=== PATIENT | female | born 1940 | race Caucasian/White ===

== ENCOUNTER 2017-08-08 09:32 | Outpatient (CLI) | payer MEDICARE | END 2017-08-08 09:33 | disposition home or self-care (01) | LOC: BICMAMMO 09:32 | PROVIDERS: ATTEND Family Medicine | DX: Z12.31 Encounter for screening mammogram for malignant neoplasm of breast (principal) | CPT/HCPCS: 77067; G0202 ==

== ENCOUNTER 2018-03-13 09:51 | Outpatient (CLI) | payer MEDICARE ==
[2018-03-13 11:26] LABS: #Eosinphils 0.1 thou/uL (0.0-0.7); #Lymphocytes 1.5 thou/uL (1.20-3.40); #Monocytes 0.5 thou/uL (0.11-0.59); #Neutrophils 1.8 thou/uL (1.40-6.50); %Eosinophils 2.2 % (0.0-10.0); %Lymphocytes 38.1 % (21.0-51.0); %Monocytes 13.3 % (0.0-10.0); %Neutrophils 45.4 % (42.0-75.0); Hemoglobin 12.2 g/dL (12.0-16.0); Mean Corpuscular HGB CONC 34.3 g/dL (32.0-36.0); Mean Corpuscular Hemoglobin 32.4 pg (27.0-31.0); Mean Corpuscular Volume 94.6 fL (78.0-98.0); Mean Platelet Volume 6.1 fL (7.4-10.4); Platelet Count 239 thou/uL (130-400); RBC Distribution Width 12.6 % (11.5-14.5); Red Blood Cell (RBC) Count 3.76 mill/uL (4.20-5.40); White Blood Cell (WBC) Count 3.9 thou/uL (4.8-10.8)
[2018-03-13 12:03] LABS: Anion Gap 12 mmol/L (10-20); BUN (Urea Nitrogen) 16 mg/dL (9.8-20.1); Calc. Creatinine Clearance 0 mL/min (70-130); Calcium 8.7 mg/dL (7.8-10.44); Carbon Dioxide 24 mmol/L (23-31); Chloride 106 mmol/L (98-107); Estimated GFR-MDRD 55; Glucose 89 mg/dL (83-110); Potassium 4.3 mmol/L (3.5-5.1); Sodium 138 mmol/L (136-145)
--- NOTE | 2018-03-13 12:37 | RAD ---
CHEST 2 VIEWS: Date: 03/13/18 HISTORY: Preop. COMPARISON: 04/08/17. FINDINGS: Cardiac silhouette and pulmonary vasculature are unremarkable. Mediastinum is midline. No confluent a ir space consolidation, pneumothorax, or pleural fluid. Enchondroma right humerus partially visualize d. IMPRESSION: No active cardiopulmonary abnormalities are demonstrated. POS: [facility]
== END 2018-03-13 09:52 | disposition home or self-care (01) ==
LOC: LABBT 09:51
PROVIDERS: ATTEND Orthopaedic Surgery Hand Surgery
DX: Z01.818 Encounter for other preprocedural examination (principal); M65.341 Trigger finger, right ring finger; M19.131 Post-traumatic osteoarthritis, right wrist
CPT/HCPCS: 71046; 80048; 85025; 85652

== ENCOUNTER 2018-03-14 05:51 | Inpatient (IN) | payer MEDICARE ==
[2018-03-13 10:24] VITALS: BMI 35.0
[2018-03-14] MEDS ORDERED: Midazolam HCl 2 mg/2 ml Vial ONE (06:13)
[2018-03-14] MEDS ORDERED: Fentanyl 250 MCG/5 ML VIAL ONE (06:13)
[2018-03-14] MEDS ORDERED: Bupivacaine PF 0.5% 30 ML VIAL ONE (06:47)
[2018-03-14] MEDS ORDERED: Betamet Acet/Betamet Na Ph 30 MG/5 ML VIAL ONE (06:47)
[2018-03-14] MEDS ORDERED: Sodium Chloride 0.9% 10 ML ONE (06:47)
[2018-03-14] MEDS ORDERED: Bacitracin Zinc Ointment 30 gm TUBE ONE (06:48)
[2018-03-14] MEDS ORDERED: CEFAZOLIN/Water 2 GM/20 ML SYRINGE ONE (07:21)
[2018-03-14] MEDS ORDERED: Fentanyl 100 MCG/2 ML VIAL SLOW IVP PRN (11:32)
[2018-03-14] MEDS ORDERED: Acetaminophen 325 MG TAB PO PRN (11:32)
[2018-03-14] MEDS ORDERED: Ondansetron HCl/PF 4 MG/2 ML Vial IV PRN (11:32)
[2018-03-14] MEDS ORDERED: traMADol HCl 50 MG TAB PO PRN (11:32)
[2018-03-14] MEDS ORDERED: Communication Order-Pharmacy FS PRN (11:45)
[2018-03-14] MEDS ORDERED: TETANUS AND DIPHTHERIA TOX/PF 0.5 ML DISP.SYRIN IM SCH (12:00)
[2018-03-14] MEDS ORDERED: Ondansetron HCl/PF 4 MG/2 ML Vial IVP PRN (12:08)
[2018-03-14] MEDS ORDERED: Promethazine HCl 25 MG/ML VIAL SLOW IVP PRN (12:08)
[2018-03-14] MEDS ORDERED: Meperidine HCl/PF 25 MG/ML VIAL SLOW IVP PRN (12:08)
[2018-03-14] MEDS ORDERED: Promethazine HCl 25 MG/ML VIAL IM PRN (12:08)
[2018-03-14] MEDS ORDERED: Succinylcholine Chloride 20 MG/ML 10 ml SYRINGE FS ONE (12:35)
[2018-03-14] MEDS ORDERED: Ketorolac Tromethamine 30 MG/ML VIAL ONE (12:35)
[2018-03-14] MEDS ORDERED: PROPOFOL 200 MG/20 ML VIAL ONE (12:35)
[2018-03-14] MEDS ORDERED: ePHEDrine/0.9% NaCl/PF SYRINGE 50 mg/10 ml ONE (12:35)
[2018-03-14] MEDS ORDERED: Lidocaine 1% PF 5 ML VIAL ONE (12:35)
[2018-03-14] MEDS ORDERED: Dexamethasone 20 MG/5 ML VIAL ONE (12:35)
[2018-03-14] MEDS ORDERED: Ondansetron HCl/PF 4 MG/2 ML Vial ONE (12:35)
--- NOTE | 2018-03-14 12:45 | RAD ---
RIGHT WRIST INTRAOPERATIVE FLUOROSCOPY THREE VIEWS: History: Severe arthritis. FINDINGS: Intraoperative fluoroscopy was provided for internal fixation and orthopedic surgery as performed by Dr. Patel. Multiple spot fluoroscopic images show four metallic screws transfixing the proximal an d distal carpal rows and surgical absence of the scaphoid. Fluoro time = 152 seconds. POS: [facility]
[2018-03-14] MEDS: HYDROcodone/Acetaminophen 5/325 mg Tablet PO PRN ×3 (15:11→23:20)
[2018-03-14] MEDS ORDERED: Famotidine 20 MG TAB PO PRN (19:54)
[2018-03-14] MEDS ORDERED: Furosemide 20 MG TAB PO PRN (19:56)
[2018-03-14] MEDS ORDERED: Amitriptyline HCl 25 MG TAB PO SCH (21:00)
[2018-03-14] MEDS ORDERED: Aspirin 81 mg Enteric Coated Tablet PO SCH (21:00)
[2018-03-15] MEDS: HYDROcodone/Acetaminophen 5/325 mg Tablet PO PRN ×2 (04:49→09:52)
[2018-03-15 05:23] LABS: ALT (SGPT) 17 U/L (8-55); AST (SGOT) 18 U/L (5-34); Albumin 3.7 g/dL (3.4-4.8); Alkaline Phosphatase 63 U/L (40-150); Anion Gap 12 mmol/L (10-20); BUN (Urea Nitrogen) 18 mg/dL (9.8-20.1); Bilirubin, Total 0.3 mg/dL (0.2-1.2); Calc. Creatinine Clearance 67 mL/min (70-130); Calcium 8.6 mg/dL (7.8-10.44); Carbon Dioxide 24 mmol/L (23-31); Chloride 102 mmol/L (98-107); Estimated GFR-MDRD 48; Globulin 2.5 g/dL (2.4-3.5); Glucose 126 mg/dL (83-110); Potassium 4.3 mmol/L (3.5-5.1); Protein, Total 6.2 g/dL (6.0-8.3); Sodium 134 mmol/L (136-145)
--- NOTE | 2018-03-15 08:23 | OP ---
PREOPERATIVE DIAGNOSES: 1. Right ring finger A1 loli tenosynovitis with triggering. 2. Right scapholunate advanced collapse wrist, stage 3. FINDINGS: 1. A very tight A1 loli, right ring finger. 2. Complete scapholunate ligament tear with no residual ligament left, mild dorsal triquetral instab ility with complete obliteration of radioscaphoid chondral surface, scaphoid to capitate over 70% inv olved, chondral surface of the capitate and lunate approximately 50% involved with osteophytic change s. PROCEDURES: 1. Right ring finger trigger digit release. 2. Scaphoid excision. 3. Capito-hamate, lunotriquetral fusion for the four-corner fusion, in situ with only minimal modifi cation of position and using a bone graft from cadaver as well as bone graft from the scaphoid. TOTAL TOURNIQUET TIME: 120 minutes. SURGEON: Miguel Patel M.D. C-ARM USED: Yes. DESCRIPTION OF PROCEDURE: After successful general LMA technique, the limb was prepped and draped. Patient then had the timeout done appropriately. The ring finger trigger digit area and then the zig zag incision for the dorsal approach to the wrist were injected with 5 mL on the palm, loli incisio n and 15 incisions over the dorsal wrist incision. At this point, we then had the limb exsanguinated , tourniquet inflated to 250 mmHg pressure. A zigzag incision was made 15 mm long, extended over the A1 loli, carried through the skin and subcutaneous tissue. We then dissected the digital nerve br anch free from the center of the field. This also identified the A1 loli was with thick bands prox imal to this. The bands were released first in the A1 loli completely. Once this was done, the A2 loli was intact and there was no bowstringing. We placed 2 mL of Celestone in this area, then jane sed the wound with interrupted 4-0 nylon in mattress pattern. We turned our attention now to the dorsal wrist incision. Tourniquet was already inflated. Skin inc ision was carried through the skin and subcutaneous tissue until we identified superficial ulnar and superficial radial nerve branches, retracted them well away from the center of the field, so we can t hen visualize the extensor retinaculum. We saw the extensor pollicis longus, opened the retinaculum at the level of the fourth dorsal compartment, carried this incision through the capsule, making 1 la rge flap of the 3 capsule ligamentous structures, which would be all in the base. We now saw the com plete scaphoid and placed a K-wire in it. Used a C-arm to identify that the K-wire was adequate. We then slowly elevated the scaphoid at its bed, took it to the back table and saw we can only get a sm all amount of bone graft from it. So, we would need bone bank's cadaver. At the same time, we spare d as much of the lunotriquetral ligament as possible. Then, began our cortical decortication, which was done completely with a combination of the hooked curette and then a power faisal to finish the rest down the subchondral bone with bleeding seen, even despite the tourniquet was available. This was p unctate bleeding. We now placed the bone graft in the side in previously 40 degrees apex, dorsal, angulated. The patie nt then had bone graft placed, with a mixture of the four-quadrant bone graft in the center of the actual area, we suspect to heal, so we will put the needed bone graft here. Now, we placed 2 jose de jesus dewires, one on the ulnar central aspect of the hamate into the ulnar central aspect of the triquetru m, and another one on the central aspect of the capitellum, this time pointing towards the lunate. On ce this was done, we measured, drilled, and held the knees in place with accessory clamps, we allowed to compress at the capito-lunate joint. We then followed with successive placement of screws, one m ore from this approach dorsally and from the hamate to the capitate and they appeared to be solid and well positioned from the sagittal plane. We then turned attention to the lateral wound, and without making another incision, we dissected down, protecting the superficial ulnar nerve until the point w here we could visibly see the patient's extensor carpi ulnaris. Radiographs used to identify the ирина nts, open the sheath of the extensor carpi ulnaris distal to the styloid over the lunate, triquetrum, and hamate joint regions. K-wires were placed in appropriate position from the sagittal plane, then this was without adequate placement of the wires. We then finished some decortication, finished pac tonja the bone, and then placed 2 screws first in the capito-hamate joint with a compression scr ew and the same in the eviowxar-rmobfy-iqcrfy-triquetrum fusion. We then finished the guidewires on the lateral side, they were in a good position from the sagittal p javi, and then we measured them and placed them after drilling over the guidewire from the triquetrum to the lunate and then from the hamate to the capitate. Excellent apposition was seen. Slightly a more amount of bone graft was placed. There were no loose bodies. We tested wrist motion x5 with us e of umbrella and there were no other findings. At this point, the patient had the tourniquet deflated. We closed with a 2-0 Vicryl, the extensor ca rpi ulnaris sheath. A #1 Ethibond with OS 4 needle was used to close in interrupted fashion horizont al mattress. The capsule was not completely closed with the suture. Then, with the tourniquet defla elen, we could see some bleeding from the subcutaneous tissue and maintained hemostasis with electroca utery protecting the cutaneous nerve branch of radial and ulnar. We then closed the retinaculum with interrupted 2-0 Vicryl, in a horizontal mattress technique, and then we were able to close the subcu taneous tissue with a running stitch and then the skin reapproximated with simple nylon. The patient then had a bulky dressing applied, left the operating room without evidence of anesthetic or operati ve complication. This included both the injuries.
[2018-03-15] MEDS ORDERED: Clopidogrel Bisulfate 75 MG TAB PO SCH (09:00)
[2018-03-15] MEDS ORDERED: Lisinopril 10 MG TAB PO SCH (09:00)
[2018-03-15] MEDS ORDERED: Multivitamin W/ Minerals 1 TAB PO SCH (09:00)
[2018-03-15] MEDS ORDERED: Polyethylene Glycol 3350 17 GM Packet PO SCH (09:00)
[2018-03-15] MEDS ORDERED: Ubidecarenone 50 MG CAP PO SCH (09:00)
[2018-03-15] MEDS ORDERED: Loratadine 10 MG TAB PO SCH (09:00)
[2018-03-15 10:43] VITALS: BP 118/66; TEMP 98.3
== END 2018-03-15 10:55 | disposition home or self-care (01) | DRG 514 ==
LOC: SDC 05:51 → SURG A 11:22
PROVIDERS: ADMIT Orthopaedic Surgery Hand Surgery; ATTEND Orthopaedic Surgery Hand Surgery
PROC: 0RG Upper Joints, Fusion (ICD-10-PCS; principal; 2018-03-14)
PROC: 0LN70ZZ Release Right Hand Tendon, Open Approach (ICD-10-PCS; 2018-03-14)
PROC: 0PBM0ZZ Excision of Right Carpal, Open Approach (ICD-10-PCS; 2018-03-14)
PROC: 0RG Upper Joints, Fusion (ICD-10-PCS; 2018-03-14)
PROC: 0RG Upper Joints, Fusion (ICD-10-PCS; 2018-03-14)
DX: M19.031 Primary osteoarthritis, right wrist (principal); M65.341 Trigger finger, right ring finger; M65.9 Synovitis and tenosynovitis, unspecified; I10 Essential (primary) hypertension; E78.00 Pure hypercholesterolemia, unspecified; I25.10 Atherosclerotic heart disease of native coronary artery without angina pectoris; Z88.2 Allergy status to sulfonamides; Z88.8 Allergy status to other drugs, medicaments and biological substances; Z79.02 Long term (current) use of antithrombotics/antiplatelets; Z79.82 Long term (current) use of aspirin; Z79.899 Other long term (current) drug therapy
CPT/HCPCS: 36415; 71046; 76001; 80048; 80053; 85025; 85652; A4216; C1713; J0702; J1100; J1885; J2001; J2250; J2270; J2405; J2704; J3010; J3490; S0020

== ENCOUNTER 2018-04-04 09:10 | Outpatient (CLI) | payer MEDICARE | END 2018-04-04 09:11 | disposition home or self-care (01) | LOC: BICCT 09:10 | PROVIDERS: ATTEND Internal Medicine Critical Care Medicine | DX: J84.10 Pulmonary fibrosis, unspecified (principal); R91.1 Solitary pulmonary nodule | CPT/HCPCS: 71250 ==

== ENCOUNTER 2018-08-10 12:58 | Outpatient (CLI) | payer MEDICARE ==
--- NOTE | 2018-08-10 16:01 | BD ---
Exam: DEXA Bone Density 08/10/18 COMPARISON: None available. HISTORY: Postmenopausal female undergoing screening for osteoporosis. Lumbar Spine: BMD (g/cm2) L1 0.844 T-Score: -1.3 L2 0.799 T-Score: -2.2 L3 0.866 T-Score: -2.0 L4 0.931 T-Score: -1.2 L1-L4 0.863 T-Score: -1.7 Femoral Neck: 0.562 T-Score: -2.6 Total Proximal Femur: 0.652 T-Score: -2.4 The FRAX-WHO fracture risk assessment tool is not reported as some T-Scores are at or below -2.5. IMPRESSION: 1. Osteopenia of the lumbar spine. 2. Osteoporosis of the femoral neck correlating with a high associated risk for fracture. POS: [facility]
== END 2018-08-10 12:59 | disposition home or self-care (01) ==
LOC: BICMAMMO 12:58
PROVIDERS: ATTEND Nurse Practitioner Family
DX: Z12.31 Encounter for screening mammogram for malignant neoplasm of breast (principal); M81.0 Age-related osteoporosis without current pathological fracture; M85.88 Other specified disorders of bone density and structure, other site
CPT/HCPCS: 77063; 77067; 77080

== ENCOUNTER 2019-04-11 09:27 | Outpatient (CLI) | payer MEDICARE ==
--- NOTE | 2019-04-11 10:49 | CT ---
Exam: CHEST CT WITHOUT CONTRAST: HISTORY: Pulmonary fibrosis. Cough. COMPARISON: 04/04/2018, 04/08/2017. FINDINGS: Limited evaluation of the mediastinum due to lack of IV contrast. No mediastinal mass, lymphadenopath y or hematoma. Normal heart size. Atherosclerosis of the aortic valve and visualized aorta. No aneurysm. There are coronary calcifications. Visualized upper solid organs are grossly unremarkable. Hypodensity in the hepatic parenchyma is once again demonstrated. Gallbladder is surgically absent. Trachea and central bronchi are patent. Dependent atelectatic changes. Scarring in the lingula and mi ddle lobe. The previously noted groundglass nodule in the superior segment of the right lower lobe is less evide nt on the current examination, due to adjacent lung parenchymal changes. Currently, nodule measures approximately 4 mm. These lung parenchymal changes are along the dependent aspect of the lung parench yma and may represent atelectasis. Early fibrotic change cannot be excluded. There is no evidence of cavitation, bullous formation, or bronchiectasis. There are no suspicious nodules throughout the l lizzeth parenchyma. IMPRESSION:: Patchy linear opacities in lung parenchyma, similar to the previous examination. Stable groundglass n odule noted in the superior segment of the right lower lobe. Adjacent lung parenchymal changes may represent early fibrotic change. However, dependent atelectasis cannot be excluded. Consider high-res olution chest CT for further detail.. Transcribed Date/Time: 04/11/2019 11:37 AM
== END 2019-04-11 09:28 | disposition home or self-care (01) ==
LOC: BICCT 09:27
PROVIDERS: ATTEND Internal Medicine Critical Care Medicine
DX: J84.10 Pulmonary fibrosis, unspecified (principal); R91.1 Solitary pulmonary nodule
CPT/HCPCS: 71250

== ENCOUNTER 2019-08-01 10:01 | Outpatient (CLI) | payer MEDICARE ==
--- NOTE | 2019-08-01 10:24 | ULT ---
EXAM: Left lower extremity venous Doppler HISTORY: Left lower extremity swelling and pain. FINDINGS: Grayscale, color-flow, Doppler evaluation, spectral analysis of the left lower extremity venous struc tures is performed with 2-D imaging. The left common femoral, superficial femoral, popliteal, posterior tibial, proximal greater saphenous and profunda femoral veins are imaged. There is normal luminal compressibility, flow, and augmentation in the visualized deep venous structu res of the left lower extremity. IMPRESSION: No evidence of a deep vein thrombosis in the visualized deep venous structures left lower extremity.
== END 2019-08-01 10:02 | disposition home or self-care (01) ==
LOC: SCSULT 10:01
PROVIDERS: ATTEND Orthopaedic Surgery
DX: M25.572 Pain in left ankle and joints of left foot (principal); R60.0 Localized edema

== ENCOUNTER 2019-08-21 12:24 | Outpatient (CLI) | payer MEDICARE ==
--- NOTE | 2019-08-21 15:25 | MMO ---
Bilateral MAMMO Bilat Screen [facility]. CLINICAL HISTORY: Patient is 79 years old and is seen for screening. The patient has no family history of breast cancer. The patient has no personal history of cancer. The patient has a history of left Excisional Biopsy in 1990 - benign. VIEWS: The views performed were: bilateral craniocaudal with tomosynthesis; bilateral mediolateral oblique with tomosynthesis; and right mediolateral oblique. FILMS COMPARED: The present examination has been compared to prior imaging studies performed at [facility] on 07/22/2015, 08/05/2016, 08/08/2017 and 08/10/2018. This study has been interpreted with the assistance of computer-aided detection. MAMMOGRAM FINDINGS: There are scattered fibroglandular densities. There are benign appearing calcifications seen in both breasts. There are no suspicious masses, suspicious calcifications, or new areas of architectural distortion. IMPRESSION: THERE IS NO MAMMOGRAPHIC EVIDENCE OF MALIGNANCY. A ROUTINE FOLLOW-UP MAMMOGRAM IN 1 YEAR IS RECOMMENDED. THE RESULTS OF THIS EXAM WERE SENT TO THE PATIENT. ACR BI-RADS Category 2 - Benign finding MAMMOGRAPHY NOTE: 1. A negative mammogram report should not delay a biopsy if a dominant of clinically suspicious mass is present. 2. Approximately 10% to 15% of breast cancers are not detected by mammography. 3. Adenosis and dense breasts may obscure an underlying neoplasm. Reported by: VANESA CASTELAN MD Electonically Signed: [id number]
== END 2019-08-21 12:25 | disposition home or self-care (01) ==
LOC: BICMAMMO 12:24
PROVIDERS: ATTEND Family Medicine
DX: Z12.31 Encounter for screening mammogram for malignant neoplasm of breast (principal)
CPT/HCPCS: 77063; 77067

== ENCOUNTER 2020-04-09 09:51 | Outpatient (CLI) | payer MEDICARE ==
--- NOTE | 2020-04-09 12:21 | CT ---
CT CHEST WITHOUT CONTRAST: INDICATION: Pulmonary fibrosis. Shortness of breath. COMPARISON: Comparison is made to chest CT of 04/11/2019. FINDINGS: Lungs are well expanded. No significant interstitial prominence seen in the upper lobes. Lower lobes show mild interstitial prominence posteriorly in both lower lobes which has a similar cherry earance to the prior exam. No infiltrate or effusion. No significant interval change. Mediastinum unremarkable. Images through upper abdomen the hepatic cystic structure noted previously to aartiad gold clips in the jessy hepatis is stable. IMPRESSION: Stable lung [place]. Some mild interstitial prominent posteriorly in the lower lobes again noted. Th ere is a subtle nodular density posterior right lower lobe measuring up to 5 mm which does not appear significantly changed. POS: [facility]
== END 2020-04-09 09:52 | disposition home or self-care (01) ==
LOC: BICCT 09:51
PROVIDERS: ATTEND Internal Medicine Critical Care Medicine
DX: J84.10 Pulmonary fibrosis, unspecified (principal)
CPT/HCPCS: 71250

== ENCOUNTER 2020-08-22 11:32 | Outpatient (CLI) | payer MEDICARE ==
--- NOTE | 2020-08-22 12:42 | MMO ---
Bilateral MAMMO Bilat Screen [facility]. CLINICAL HISTORY: Patient is 80 years old and is seen for screening. The patient has no family history of breast cancer. The patient has no personal history of cancer. The patient has a history of left Excisional Biopsy in 1990 - benign. VIEWS: The views performed were: bilateral craniocaudal with tomosynthesis and bilateral mediolateral oblique with tomosynthesis. FILMS COMPARED: The present examination has been compared to prior imaging studies performed at [facility] on 08/05/2016, 08/08/2017, 08/10/2018 and 08/21/2019. This study has been interpreted with the assistance of computer-aided detection. MAMMOGRAM FINDINGS: There are scattered fibroglandular densities. There are stable benign appearing calcifications seen in both breasts. There are also vascular calcifications. There are no suspicious masses, suspicious calcifications, or new areas of architectural distortion. IMPRESSION: THERE IS NO MAMMOGRAPHIC EVIDENCE OF MALIGNANCY. A ROUTINE FOLLOW-UP MAMMOGRAM IN 1 YEAR IS RECOMMENDED. THE RESULTS OF THIS EXAM WERE SENT TO THE PATIENT. ACR BI-RADS Category 2 - Benign finding MAMMOGRAPHY NOTE: 1. A negative mammogram report should not delay a biopsy if a dominant of clinically suspicious mass is present. 2. Approximately 10% to 15% of breast cancers are not detected by mammography. 3. Adenosis and dense breasts may obscure an underlying neoplasm. Reported by: JAYSHREE ALFORD MD Electonically Signed: [id number]
== END 2020-08-22 11:33 | disposition home or self-care (01) ==
LOC: BICMAMMO 11:32
PROVIDERS: ATTEND Family Medicine
DX: Z12.31 Encounter for screening mammogram for malignant neoplasm of breast (principal); Z91.89 Other specified personal risk factors, not elsewhere classified
CPT/HCPCS: 77063; 77067

== ENCOUNTER 2020-09-12 12:31 | Inpatient (IN) | payer MEDICARE ==
[2020-09-12] MEDS ORDERED: Dexamethasone 4 mg/ml Vial ONE (13:01)
[2020-09-12 13:14] LABS: #Lymphocytes 0.7 thou/uL (1.20-3.40); #Monocytes 0.9 thou/uL (0.11-0.59); #Neutrophils 4.7 thou/uL (1.40-6.50); %Basophils 0.5 % (0.0-1.0); %Eosinophils 0.2 % (0.0-10.0); %Monocytes 13.5 % (0.0-10.0); %Neutrophils 74.8 % (42.0-75.0); Hemoglobin 11.8 g/dL (12.0-16.0); Mean Corpuscular HGB CONC 34.4 g/dL (32.0-36.0); Mean Corpuscular Hemoglobin 31.7 pg (27.0-31.0); Mean Corpuscular Volume 92.1 fL (78.0-98.0); Mean Platelet Volume 6.2 fL (7.4-10.4); Platelet Count 336 thou/uL (130-400); RBC Distribution Width 11.9 % (11.5-14.5); Red Blood Cell (RBC) Count 3.72 mill/uL (4.20-5.40); White Blood Cell (WBC) Count 6.3 thou/uL (4.8-10.8)
[2020-09-12 13:31] LABS: ALT (SGPT) 34 U/L (8-55); AST (SGOT) 34 U/L (5-34); Albumin 3.5 g/dL (3.4-4.8); Alkaline Phosphatase 61 U/L (40-110); Anion Gap 18 mmol/L (10-20); BUN (Urea Nitrogen) 22 mg/dL (9.8-20.1); Bilirubin, Total 0.6 mg/dL (0.2-1.2); Calc. Creatinine Clearance 0 mL/min (70-130); Calcium 8.3 mg/dL (7.8-10.44); Carbon Dioxide 19 mmol/L (23-31); Chloride 92 mmol/L (98-107); Glucose 101 mg/dL (83-110); Potassium 3.8 mmol/L (3.5-5.1); Protein, Total 6.5 g/dL (6.0-8.3); Sodium 125 mmol/L (136-145)
--- NOTE | 2020-09-12 13:45 | RAD ---
PORTABLE CHEST 1 VIEW: DATE: 09/12/2020. TIME: 12:59 PM. HISTORY: Cough. COVID positive. FINDINGS: Comparison is made with the exam of 03/03/2015. The heart size is normal. The lungs are expanded without focal areas of consolidation, pneumothorace s, or pleural effusions. Enchondroma in the right proximal humerus is again seen. IMPRESSION: No radiographic evidence of acute cardiopulmonary process. Plain radiographs can be falsely negative in the setting of COVID-19 pneumonia. POS: [facility]
[2020-09-12] MEDS ORDERED: Ondansetron ODT 4 MG TAB PO PRN (16:37)
[2020-09-12] MEDS ORDERED: Guaifenesin DM 100-10/5 ML UDCUP PO PRN (16:37)
[2020-09-12] MEDS ORDERED: Ondansetron PF 4 MG/2 ML Vial IVP PRN (16:37)
--- NOTE | 2020-09-12 17:18 | PDOC.HHP ---
Hospitalist HPI - History of Present Illness General malaise and weakness History of Present Illness: PCP: Anjum Buchanan HPI: The patient is a 80-year-old female with past medical history significant for hypertension, hyperlipidemia, CAD x1 stent (2007) that presents to the emergency department with above complaint. The patient reports feeling generally weak for the past 7 to 10 days. She reports that the onset is gradual and she describes it as feeling "blah". She reports that she was diagnosed with Covid on 08/30/2020. At that time, her symptoms were mild nonproductive cough and mild shortness of breath. Since, she has just progressively felt "more blah". She denies any fever or chills. She denies any recent fall or trauma. The only change in her medications that she was started on hydroxychloroquine approximately 1 week ago by her PCP. She denies any abdominal pain, nausea, vomiting. She had 1 bout of diarrhea approximately 7 days ago. She denies any abdominal pain, hemoptysis, hematochezia/melena. No wheezing. No history of DVT/PE. No history of COPD/asthma. Denies any chest pain, heart palpitations or lightheadedness. Denies dysuria and hematuria. ED Course: Presented hypertensive with a BP 155/56, NL HR, tachypneic 22 RR, 90% SPO2, afebrile. EKG normal sinus rhythm no ST elevations. Troponin negative. CXR no acute process. Sodium 125, BUN 22. WBC 6.3, hemoglobin 11.8, hematocrit 34.3, platelet 336. Magnesium 2.0. Medications: 1 L normal saline Dexamethasone IVP Hospitalist ROS - Review of Systems All other systems reviewed; all pertinent +/- noted in HPI/Subj - Medication Medications: 1. Hydroxychloroquine 200 mg p.o. twice daily x10 days. 2. Lisinopril 20 mg p.o. every morning. 3. Aspirin 81 mg p.o. nightly. 4. Isosorbide mononitrate 90 mg p.o. every morning. 5. Plavix 75 mg p.o. daily. 6. Toprol-XL 50 mg p.o. daily. 7. Ranexa 1000 mg p.o. twice daily. 8. Evista 60 mg p.o. daily 9. MiraLAX 1 packet p.o. daily 10. Amitriptyline unknown dose as needed 11. Hyoscyamine unknown dose as needed. Allergies: Statins, Zetia, adhesive tape Hospitalist History - Past Medical History Source: patient, RN notes reviewed Cardiac: reports: CAD (X1 stent (2007)), HTN, Hyperlipidemia - Past Surgical History Past Surgical History: reports: Hysterectomy, Other (Right carpal tunnel (1990), left hip and wrist surgery, hip replacement (2011), right heart cath 03/19) - Family History Other Family History: Noncontributory to this case - Social History Smoking Status: Never smoker Alcohol: reports: None Drugs: reports: none Living Situation: With Family Occupation: Retired Activity level: independent ambulation - Exam General Appearance: NAD, awake alert. negative: ill appearing Eye: anicteric sclera ENT: normocephalic atraumatic Neck: supple, no lymphadenopathy Heart: RRR, no murmur, no gallops, no rubs, normal peripheral pulses Respiratory: CTAB, no wheezes, no rales, no ronchi, normal chest expansion, no tachypnea Gastrointestinal: soft, non-tender, normal bowel sounds, no guarding, no rigidity Extremities: no cyanosis, no edema Skin: no rashes Neurological: cranial nerve grossly intact Musculoskeletal: generalized weakness Psychiatric: normal affect, A&O x 3 Hospitalist Results - Labs Result Diagrams: 09/12/20 12:56 09/12/20 12:56 Lab results: WBC 6.3 thou/uL (4.8-10.8) 09/12/20 12:56 Hgb 11.8 g/dL (12.0-16.0) L 09/12/20 12:56 Hct 34.3 % (36.0-47.0) L 09/12/20 12:56 MCV 92.1 fL (78.0-98.0) 09/12/20 12:56 Plt Count 336 thou/uL (130-400) 09/12/20 12:56 Neutrophils % 74.8 % (42.0-75.0) 09/12/20 12:56 Sodium 125 mmol/L (136-145) L 09/12/20 12:56 Potassium 3.8 mmol/L (3.5-5.1) 09/12/20 12:56 Chloride 92 mmol/L (98-107) L 09/12/20 12:56 Carbon Dioxide 19 mmol/L (23-31) L 09/12/20 12:56 BUN 22 mg/dL (9.8-20.1) H 09/12/20 12:56 Creatinine 0.85 mg/dL (0.6-1.1) 09/12/20 12:56 Glucose 101 mg/dL (83-110) 09/12/20 12:56 Calcium 8.3 mg/dL (7.8-10.44) 09/12/20 12:56 Total Bilirubin 0.6 mg/dL (0.2-1.2) 09/12/20 12:56 AST 34 U/L (5-34) 09/12/20 12:56 ALT 34 U/L (8-55) 09/12/20 12:56 Alkaline Phosphatase 61 U/L (40-110) 09/12/20 12:56 Troponin I Less than 0.010 ng/mL (< 0.028) 09/12/20 12:56 Serum Total Protein 6.5 g/dL (6.0-8.3) 09/12/20 12:56 Albumin 3.5 g/dL (3.4-4.8) 09/12/20 12:56 - EKG Interpretation EKG: Normal sinus rhythm no ST elevations - Radiology Interpretation Chest x-ray Status: report reviewed by me Additional Comment: No acute cardiopulmonary process Hospitalist H&P A/P - Problem (1) Hyponatremia Code(s): E87.1 - HYPO-OSMOLALITY AND HYPONATREMIA Status: Acute (2) Generalized weakness Code(s): R53.1 - WEAKNESS Status: Acute (3) COVID-19 virus infection Code(s): U07.1 - COVID-19 Status: Acute (4) CAD (coronary artery disease) Code(s): I25.10 - ATHSCL HEART DISEASE OF [place] CORONARY ARTERY W/O ANG PCTRS Status: Chronic (5) Dyslipidemia Code(s): E78.5 - HYPERLIPIDEMIA, UNSPECIFIED Status: Chronic (6) Hypertension Code(s): I10 - ESSENTIAL (PRIMARY) HYPERTENSION Status: Chronic - Plan Plan: 80/F with PMH HTN, HLD, CAD presents for general weakness and malaise. Admit to medical floor, observation status. Expected length of stay less than 2 midnights. #Hyponatremia Presented sodium Na 125. Diarrhea x1 episode. No vomiting. Not on diuretics. Check serum osmolality, urine sodium and osmolality. Check TSH and UA. Received 1 L normal saline in ED. Recheck BMP at 1999. #Generalized weakness Likely multifactorial. Possibly related to problem #1 and #3. #COVID-19 virus infection Diagnosed 08/30. Repeat Covid test pending Presented NL RR and SPO2. Continue to monitor. No indication for steroids. Lovenox for DVT prophylaxis. Isolation precautions. Cough medicine as needed. #CAD Chronic. Restart home dose aspirin and Plavix. Restart home dose Toprol-XL, isosorbide mononitrate and Ranexa. #Dyslipidemia Chronic. She does not take any home medications for this. #Hypertension Presented mildly hypertensive. Restart home BP, ACEI, isosorbide mononitrate. Continue monitor BP Lovenox for DVT prophylaxis. Pepcid for GI prophylaxis. CODE STATUS is full code. Discussed the case with attending physician, Dr. Cross.
[2020-09-12 18:47] LABS: Bacteria/HPF None Seen HPF (None Seen); Bilirubin Negative (Negative); Blood, Urine Negative (Negative); Clarity Clear (Clear); Glucose, Urine (Dipstick) Normal (Negative); Ketone, Urine Trace mg/dL (Negative); Leukocyte Negative Leu/uL (Negative); Nitrite 1+ (Negative); Protein, Urine (Dipstick) Negative (Neg-Trace); RBC/HPF 0-3 HPF (0-3); Specific Gravity, Urine 1.004 (1.002-1.036); Squamous Epithelial None Seen HPF (0-3); Urobilinogen Normal mg/dL (Less than 2); WBC/HPF 0-3 HPF (0-3)
[2020-09-12] MEDS: Famotidine 20 MG TAB PO SCH (19:56)
[2020-09-12 20:41] LABS: Anion Gap 16 mmol/L (10-20); BUN (Urea Nitrogen) 19 mg/dL (9.8-20.1); Calc. Creatinine Clearance 81 mL/min (70-130); Calcium 8.3 mg/dL (7.8-10.44); Carbon Dioxide 18 mmol/L (23-31); Chloride 100 mmol/L (98-107); Glucose 167 mg/dL (83-110); Potassium 4.1 mmol/L (3.5-5.1); Sodium 130 mmol/L (136-145)
[2020-09-12] MEDS ORDERED: Famotidine/PF 20 mg/2ml Vial SLOW IVP SCH (21:00)
[2020-09-13 06:51] LABS: #Lymphocytes 0.8 thou/uL (1.20-3.40); #Monocytes 0.5 thou/uL (0.11-0.59); #Neutrophils 2.6 thou/uL (1.40-6.50); %Basophils 0.2 % (0.0-1.0); %Eosinophils 0.1 % (0.0-10.0); %Lymphocytes 21.2 % (21.0-51.0); %Neutrophils 66.5 % (42.0-75.0); Hemoglobin 12.7 g/dL (12.0-16.0); Mean Corpuscular HGB CONC 33.9 g/dL (32.0-36.0); Mean Corpuscular Hemoglobin 31.7 pg (27.0-31.0); Mean Corpuscular Volume 93.5 fL (78.0-98.0); Mean Platelet Volume 6.2 fL (7.4-10.4); Platelet Count 334 thou/uL (130-400); RBC Distribution Width 11.9 % (11.5-14.5); Red Blood Cell (RBC) Count 4.01 mill/uL (4.20-5.40); White Blood Cell (WBC) Count 3.9 thou/uL (4.8-10.8)
[2020-09-13 07:11] LABS: Anion Gap 16 mmol/L (10-20); BUN (Urea Nitrogen) 18 mg/dL (9.8-20.1); Calc. Creatinine Clearance 89 mL/min (70-130); Calcium 8.3 mg/dL (7.8-10.44); Carbon Dioxide 17 mmol/L (23-31); Chloride 103 mmol/L (98-107); Glucose 127 mg/dL (83-110); Potassium 3.9 mmol/L (3.5-5.1); Sodium 132 mmol/L (136-145)
[2020-09-13] MEDS: Famotidine 20 MG TAB PO SCH (07:53)
[2020-09-13] MEDS: Enoxaparin Sodium 40 MG/0.4 ML SYRINGE SC SCH (07:53)
[2020-09-13] MEDS ORDERED: FLU VACC QS2020-21(65YR UP)/PF 240 MCG/0.7 ML SYRINGE IM ONE (09:00)
[2020-09-13] MEDS ORDERED: HYDROcodone/Acetaminophen 7.5/325 mg Tablet PO PRN (09:06)
[2020-09-13] MEDS ORDERED: HYOSCYAMINE SULFATE 0.125 MG PO PRN (09:06)
[2020-09-13] MEDS ORDERED: Furosemide 20 MG TAB PO PRN (09:06)
[2020-09-13] MEDS ORDERED: Famotidine 20 MG TAB PO PRN (09:06)
[2020-09-13] MEDS ORDERED: hydrALAZINE 20 MG/ML VIAL SLOW IVP PRN (09:13)
[2020-09-13] MEDS ORDERED: Hyoscyamine Sulfate SL 0.125 mg Tablet PO PRN (09:30)
--- NOTE | 2020-09-13 11:14 | PDOC.HOSPP ---
- Subjective Encounter Date: 09/13/20 Encounter Time: 09:15 Subjective: Patient feels nauseated today she feels she did not receive any medications - Objective Vital Signs & Weight: Vital Signs (12 hours) Temp Pulse Resp BP BP Pulse Ox 09/13/20 08:52 97.9 F 74 18 153/70 H 98 09/13/20 08:50 97.9 F 74 18 153/70 H 153/70 H 98 09/13/20 04:00 98.0 F 70 18 145/80 H 98 09/13/20 00:00 98.0 F 63 18 152/79 H 98 Weight Weight 207 lb 3.752 oz Result Diagrams: 09/13/20 06:30 09/13/20 06:30 Hospitalist ROS - Medication Medications: Active Medications Generic Name Dose Route Start Last Admin Trade Name Freq PRN Reason Stop Dose Admin Enoxaparin Sodium 40 mg 09/13/20 09:00 09/13/20 07:53 Enoxaparin Sodium 40 Mg/0.4 Ml Syringe SC 40 mg 0900 ABDI Administration - Exam General Appearance: NAD, awake alert ENT: normocephalic atraumatic Neck: supple Respiratory: normal chest expansion Neurological: no focal deficits Psychiatric: normal affect, normal behavior, A&O x 3 Hosp A/P - Plan 80/F with PMH HTN, HLD, CAD presents for general weakness and malaise. Admit to medical floor, observation status. Expected length of stay less than 2 midnights. #Hyponatremia--- improving Subclinical hyperthyroidism -Patient is not on any thyroid supplement will follow up with the free T4 will not start her on any supplement but follow-up in 1 or 2 weeks with the TSH level as this may be subacute presentation of her Covid. Recheck BMP at 1999. #Generalized weakness Likely multifactorial. #COVID-19 virus infection Diagnosed 08/30. -Need to treat as she is symptomatic -Empiric Decadron and vitamins. #CAD Chronic. Restart home dose aspirin and Plavix. Restart home dose Toprol-XL, isosorbide mononitrate and Ranexa. #Dyslipidemia Chronic. She does not take any home medications for this. #Hypertension Presented mildly hypertensive. Restart home BP, ACEI, isosorbide mononitrate. Continue monitor BP Physical therapy consult Lovenox for DVT prophylaxis. Pepcid for GI prophylaxis.
[2020-09-13] MEDS ORDERED: Multivitamin W/ Minerals 1 TAB PO SCH (11:30)
[2020-09-13] MEDS ORDERED: Dexamethasone 4 MG TAB PO SCH (11:30)
[2020-09-13] MEDS ORDERED: Clopidogrel Bisulfate 75 MG TAB PO SCH (11:30)
[2020-09-13] MEDS ORDERED: Ubidecarenone 50 MG CAP PO SCH (11:30)
[2020-09-13] MEDS ORDERED: Zinc Sulfate 220 MG CAP PO SCH (11:30)
[2020-09-13] MEDS ORDERED: Lisinopril 10 MG TAB PO SCH (11:30)
[2020-09-13] MEDS ORDERED: Loratadine 10 MG TAB PO SCH (11:30)
[2020-09-13] MEDS ORDERED: Polyethylene Glycol 3350 17 GM Packet PO SCH (11:30)
[2020-09-13] MEDS ORDERED: Cholecalciferol 1,000 UNITS (25 MCG) TAB PO SCH (11:30)
[2020-09-13] MEDS: Acetaminophen 325 MG TAB PO PRN ×2 (13:59→21:46)
[2020-09-13 16:58] LABS: SARS-CoV-2 MS2 Positive; SARS-CoV-2 N Gene Positive; SARS-CoV-2 S Gene Positive; SARS-CoV-2 by NAA DETECTED (NotDetected); SARS-CoV-2 orf1ab Positive
[2020-09-13] MEDS: Aspirin Chewable 81 MG TAB PO SCH (20:17)
[2020-09-13] MEDS: Amitriptyline HCl 25 MG TAB PO SCH (20:18)
[2020-09-13] MEDS ORDERED: Non-Formulary Item 1 EACH (Omeprazole [Omeprazole] 40 MG Capsule.Dr) PO SCH (21:00)
[2020-09-13] MEDS ORDERED: Non-Formulary Item 1 EACH (Ranolazine [Ranexa] 1,000 MG Tab.Er.12h) PO SCH (21:00)
[2020-09-13] MEDS ORDERED: Amitriptyline HCl 25 MG TAB PO SCH (21:00)
[2020-09-14 05:13] VITALS: BMI 33.5
[2020-09-14 06:19] LABS: #Basophils 0.1 thou/uL (0.0-0.2); #Lymphocytes 0.9 thou/uL (1.20-3.40); #Monocytes 0.7 thou/uL (0.11-0.59); #Neutrophils 6.5 thou/uL (1.40-6.50); %Basophils 0.7 % (0.0-1.0); %Eosinophils 0.1 % (0.0-10.0); %Lymphocytes 10.5 % (21.0-51.0); %Monocytes 8.4 % (0.0-10.0); %Neutrophils 80.4 % (42.0-75.0); Hemoglobin 12.1 g/dL (12.0-16.0); Mean Corpuscular HGB CONC 33.8 g/dL (32.0-36.0); Mean Corpuscular Hemoglobin 31.5 pg (27.0-31.0); Mean Platelet Volume 6.2 fL (7.4-10.4); Platelet Count 364 thou/uL (130-400); Red Blood Cell (RBC) Count 3.86 mill/uL (4.20-5.40); White Blood Cell (WBC) Count 8.1 thou/uL (4.8-10.8)
[2020-09-14] MEDS: Ubidecarenone 50 MG CAP PO SCH (07:49)
[2020-09-14] MEDS: Dexamethasone 4 MG TAB PO SCH (07:49)
[2020-09-14] MEDS: Loratadine 10 MG TAB PO SCH (07:50)
[2020-09-14] MEDS: Cholecalciferol 1,000 UNITS (25 MCG) TAB PO SCH (07:50)
[2020-09-14] MEDS: Clopidogrel Bisulfate 75 MG TAB PO SCH (07:50)
[2020-09-14] MEDS: Zinc Sulfate 220 MG CAP PO SCH (07:50)
[2020-09-14] MEDS: Polyethylene Glycol 3350 17 GM Packet PO SCH (07:51)
[2020-09-14] MEDS: Enoxaparin Sodium 40 MG/0.4 ML SYRINGE SC SCH (07:51)
[2020-09-14] MEDS: Multivitamin W/ Minerals 1 TAB PO SCH (07:51)
[2020-09-14] MEDS: Lisinopril 10 MG TAB PO SCH (07:51)
[2020-09-14] MEDS ORDERED: Non-Formulary Item 1 EACH (Cetirizine Hcl [Zyrtec] 10 MG Capsule) PO SCH (09:00)
[2020-09-14] MEDS ORDERED: Lisinopril 10 MG TAB PO SCH (09:00)
[2020-09-14] MEDS ORDERED: UBIDECARENONE 100 MG PO SCH (09:00)
[2020-09-14] MEDS ORDERED: [UNRECOGNIZED DRUG - OTHER] PO SCH (09:00)
[2020-09-14] MEDS ORDERED: hydrALAZINE 20 MG/ML VIAL SLOW IVP PRN (10:05)
[2020-09-14] MEDS ORDERED: Lorazepam 1 MG TAB PO PRN (11:49)
--- NOTE | 2020-09-14 11:49 | PDOC.HOSPP ---
- Subjective Encounter Date: 09/14/20 Encounter Time: 09:10 Subjective: Patient feels much better today. She participated in physical therapy yesterday. She is ambulating in the room without any oxygen requirement. Her sats 96% in the room air. Her blood pressure is quite elevated. With her medications at home systolic runs around 160 range. We started her on all her home medications. She takes Toprol-XL in the evening by choice. She takes lisinopril in the morning. Will provide hydralazine as needed to keep the systolic below 160. Patient feels that she is quite edgy and anxious and wondering whether she can get some medications for that - Objective Vital Signs & Weight: Vital Signs (12 hours) Temp Pulse Resp BP BP BP Pulse Ox 09/14/20 11:34 98.0 F 57 L 16 152/74 H 98 09/14/20 10:20 157/74 H 09/14/20 08:57 97.8 F 58 L 16 175/74 H 09/14/20 08:55 97.8 F 58 L 16 175/74 H 97 09/14/20 07:51 175/74 H 09/14/20 07:50 97.8 F 58 L 16 175/74 H 97 09/14/20 04:00 97.7 F 51 L 18 160/80 H 97 09/14/20 00:00 97.8 F 61 18 152/88 H 99 Weight Admit Weight 207 lb 3.76 oz Weight 208 lb I&O: 09/13/20 09/14/20 09/15/20 06:59 06:59 06:59 Intake Total 1000 Balance 1000 Result Diagrams: 09/14/20 06:06 09/13/20 06:30 Hospitalist ROS - Medication Medications: Active Medications Generic Name Dose Route Start Last Admin Trade Name Freq PRN Reason Stop Dose Admin Acetaminophen 650 mg 09/12/20 16:37 09/13/20 21:46 Acetaminophen 325 Mg Tab PO 650 mg Q4H PRN Administration Headache/Fever/Mild Pain (1-3) Amitriptyline HCl 25 mg 09/13/20 21:00 09/13/20 20:18 Amitriptyline Hcl 25 Mg Tab PO 25 mg HS ABDI Administration Aspirin 81 mg 09/13/20 21:00 09/13/20 20:17 Aspirin Chewable 81 Mg Tab PO 81 mg HS ABDI Administration Cholecalciferol 2,000 units 09/14/20 09:00 09/14/20 07:50 Cholecalciferol 1,000 Units (25 Mcg) Tab PO 2,000 units DAILY ABDI Administration Clopidogrel Bisulfate 75 mg 09/14/20 09:00 09/14/20 07:50 Clopidogrel Bisulfate 75 Mg Tab PO 75 mg DAILY ABDI Administration Coenzyme Q10 100 mg 09/14/20 09:00 09/14/20 07:49 Ubidecarenone 50 Mg Cap PO 100 mg DAILY ABDI Administration Dexamethasone 6 mg 09/14/20 08:00 09/14/20 07:49 Dexamethasone 4 Mg Tab PO 6 mg QAM-WM ABDI Administration Enoxaparin Sodium 40 mg 09/13/20 09:00 09/14/20 07:51 Enoxaparin Sodium 40 Mg/0.4 Ml Syringe SC 40 mg 0900 ABDI Administration Iron/Minerals/Multivitamins 1 tab 09/14/20 09:00 09/14/20 07:51 Multivitamin W/ Minerals 1 Tab PO 1 tab DAILY ABDI Administration Isosorbide Mononitrate 60 mg 09/14/20 09:00 09/14/20 07:51 Isosorbide Mononitrate Er 60 Mg Tab PO 60 mg DAILY ABDI Administration Lisinopril 10 mg 09/14/20 09:00 09/14/20 07:51 Lisinopril 10 Mg Tab PO 10 mg DAILY ABDI Administration Loratadine 10 mg 09/14/20 09:00 09/14/20 07:50 Loratadine 10 Mg Tab PO 10 mg DAILY ABDI Administration Metoprolol Succinate 50 mg 09/13/20 21:00 09/13/20 20:18 Metoprolol Succinate Xl 50 Mg Tab PO 50 mg HS ABDI Administration Pantoprazole Sodium 40 mg 09/13/20 21:00 09/14/20 07:50 Pantoprazole 40 Mg Tab PO 40 mg BID ABDI Administration Polyethylene Glycol 17 gm 09/14/20 09:00 09/14/20 07:51 Polyethylene Glycol 3350 17 Gm Packet PO 17 gm DAILY ABDI Administration Raloxifene HCl 60 mg 09/14/20 09:00 09/14/20 07:51 Raloxifene Hcl 60 Mg Tab PO 60 mg DAILY ABDI Administration Ranolazine 1,000 mg 09/13/20 21:00 09/14/20 07:49 Ranolazine 500 Mg Tab PO 1,000 mg BID ABDI Administration Zinc Sulfate 220 mg 09/14/20 09:00 09/14/20 07:50 Zinc Sulfate 220 Mg Cap PO 220 mg DAILY ABDI Administration - Exam General Appearance: NAD, awake alert Eye: PERRL ENT: normocephalic atraumatic Neck: supple Heart: RRR, normal peripheral pulses Respiratory: CTAB, normal chest expansion Gastrointestinal: soft, normal bowel sounds Neurological: cranial nerve grossly intact, no focal deficits Psychiatric: normal affect, normal behavior, A&O x 3 Hosp A/P - Plan 80/F with PMH HTN, HLD, CAD presents for general weakness and malaise. Admit to medical floor, observation status. Expected length of stay less than 2 midnights. #Hyponatremia--- improving Subclinical hyperthyroidism -Patient is not on any thyroid supplement will follow up with the free T4 will not start her on any supplement but follow-up in 1 or 2 weeks with the TSH level as this may be subacute presentation of her Covid. Recheck BMP at 1999. #Generalized weakness Likely multifactorial. #COVID-19 virus infection Diagnosed 08/30. -Need to treat as she is symptomatic -Empiric Decadron and vitamins. #CAD Chronic. Restart home dose aspirin and Plavix. Restart home dose Toprol-XL, isosorbide mononitrate and Ranexa. #Dyslipidemia Chronic. She does not take any home medications for this. #Hypertension Presented mildly hypertensive. Restart home BP, ACEI, isosorbide mononitrate. Continue monitor BP Physical therapy consult Lovenox for DVT prophylaxis. Pepcid for GI prophylaxis. Continue the current management. Accelerated hypertension probably secondary to acute stress. Provide hydralazine. Patient also request some pain or sedation as she is quite anxious this morning. Added Ativan p.o. as needed.
[2020-09-14] MEDS: Aspirin Chewable 81 MG TAB PO SCH (20:16)
[2020-09-14] MEDS: Amitriptyline HCl 25 MG TAB PO SCH (20:16)
[2020-09-15 07:38] LABS: Anion Gap 15 mmol/L (10-20); BUN (Urea Nitrogen) 17 mg/dL (9.8-20.1); Calc. Creatinine Clearance 68 mL/min (70-130); Carbon Dioxide 21 mmol/L (23-31); Chloride 102 mmol/L (98-107); Glucose 102 mg/dL (83-110); Potassium 4.7 mmol/L (3.5-5.1); Sodium 133 mmol/L (136-145)
[2020-09-15] MEDS: Ubidecarenone 50 MG CAP PO SCH (07:54)
[2020-09-15] MEDS: Cholecalciferol 1,000 UNITS (25 MCG) TAB PO SCH (07:54)
[2020-09-15] MEDS: Dexamethasone 4 MG TAB PO SCH (07:54)
[2020-09-15] MEDS: Loratadine 10 MG TAB PO SCH (07:55)
[2020-09-15] MEDS: Zinc Sulfate 220 MG CAP PO SCH (07:55)
[2020-09-15] MEDS: Clopidogrel Bisulfate 75 MG TAB PO SCH (07:55)
[2020-09-15] MEDS: Multivitamin W/ Minerals 1 TAB PO SCH (07:55)
[2020-09-15] MEDS: Polyethylene Glycol 3350 17 GM Packet PO SCH (07:56)
[2020-09-15] MEDS: Lisinopril 10 MG TAB PO SCH ×2 (07:56→19:59)
[2020-09-15] MEDS: Enoxaparin Sodium 40 MG/0.4 ML SYRINGE SC SCH (07:56)
--- NOTE | 2020-09-15 10:27 | PDOC.HOSPP ---
- Subjective Encounter Date: 09/15/20 Encounter Time: 08:30 Subjective: pt able to amb[facility] room. still somewhat week, concern abt going home and getting more sick; BP high. - Objective Vital Signs & Weight: Vital Signs (12 hours) Temp Pulse Resp BP BP BP Pulse Ox 09/15/20 09:08 98 09/15/20 08:00 98.3 F 88 20 167/75 H 98 09/15/20 07:56 167/75 H 09/15/20 04:00 97.9 F 60 18 130/79 99 Weight Admit Weight 207 lb 3.76 oz Weight 207 lb I&O: 09/14/20 09/15/20 09/16/20 06:59 06:59 06:59 Intake Total 1000 1200 Balance 1000 1200 Result Diagrams: 09/14/20 06:06 09/15/20 06:43 Hospitalist ROS - Medication Medications: Active Medications Generic Name Dose Route Start Last Admin Trade Name Freq PRN Reason Stop Dose Admin Acetaminophen 650 mg 09/12/20 16:37 09/13/20 21:46 Acetaminophen 325 Mg Tab PO 650 mg Q4H PRN Administration Headache/Fever/Mild Pain (1-3) Amitriptyline HCl 25 mg 09/13/20 21:00 09/14/20 20:16 Amitriptyline Hcl 25 Mg Tab PO 25 mg HS ABDI Administration Aspirin 81 mg 09/13/20 21:00 09/14/20 20:16 Aspirin Chewable 81 Mg Tab PO 81 mg HS ABDI Administration Cholecalciferol 2,000 units 09/14/20 09:00 09/15/20 07:54 Cholecalciferol 1,000 Units (25 Mcg) Tab PO 2,000 units DAILY ABDI Administration Clopidogrel Bisulfate 75 mg 09/14/20 09:00 09/15/20 07:55 Clopidogrel Bisulfate 75 Mg Tab PO 75 mg DAILY ABDI Administration Coenzyme Q10 100 mg 09/14/20 09:00 09/15/20 07:54 Ubidecarenone 50 Mg Cap PO 100 mg DAILY ABDI Administration Dexamethasone 6 mg 09/14/20 08:00 09/15/20 07:54 Dexamethasone 4 Mg Tab PO 6 mg QAM-WM ABDI Administration Enoxaparin Sodium 40 mg 09/13/20 09:00 09/15/20 07:56 Enoxaparin Sodium 40 Mg/0.4 Ml Syringe SC 40 mg 0900 ABDI Administration Iron/Minerals/Multivitamins 1 tab 09/14/20 09:00 09/15/20 07:55 Multivitamin W/ Minerals 1 Tab PO 1 tab DAILY ABDI Administration Isosorbide Mononitrate 60 mg 09/14/20 09:00 09/15/20 07:56 Isosorbide Mononitrate Er 60 Mg Tab PO 60 mg DAILY ABDI Administration Loratadine 10 mg 09/14/20 09:00 09/15/20 07:55 Loratadine 10 Mg Tab PO 10 mg DAILY ABDI Administration Metoprolol Succinate 50 mg 09/13/20 21:00 09/14/20 20:16 Metoprolol Succinate Xl 50 Mg Tab PO 50 mg HS ABDI Administration Pantoprazole Sodium 40 mg 09/13/20 21:00 09/15/20 07:55 Pantoprazole 40 Mg Tab PO 40 mg BID ABDI Administration Polyethylene Glycol 17 gm 09/14/20 09:00 09/15/20 07:56 Polyethylene Glycol 3350 17 Gm Packet PO 17 gm DAILY ABDI Administration Raloxifene HCl 60 mg 09/14/20 09:00 09/15/20 07:56 Raloxifene Hcl 60 Mg Tab PO 60 mg DAILY ABDI Administration Ranolazine 1,000 mg 09/13/20 21:00 09/15/20 07:55 Ranolazine 500 Mg Tab PO 1,000 mg BID ABDI Administration Zinc Sulfate 220 mg 09/14/20 09:00 09/15/20 07:55 Zinc Sulfate 220 Mg Cap PO 220 mg DAILY ABDI Administration - Exam General Appearance: NAD, awake alert Eye: PERRL ENT: normocephalic atraumatic Neck: supple, no thyromegaly Heart: RRR, normal peripheral pulses Respiratory: CTAB, normal chest expansion Gastrointestinal: soft, normal bowel sounds Neurological: cranial nerve grossly intact, no weakness Hosp A/P - Plan 80/F with PMH HTN, HLD, CAD presents for general weakness and malaise. Admit to medical floor, observation status. Expected length of stay less than 2 m idnights. #Hyponatremia--- improving Subclinical hyperthyroidism -Patient is not on any thyroid supplement will follow up with the free T4 will not start her on any supplement but follow-up in 1 or 2 weeks with the TSH level as this may be subacute presentation of her Covid. Recheck BMP at 1999. #Generalized weakness Likely multifactorial. #COVID-19 virus infection Diagnosed 08/30. -Need to treat as she is symptomatic -Empiric Decadron and vitamins. #CAD Chronic. Restart home dose aspirin and Plavix. Restart home dose Toprol-XL, isosorbide mononitrate and Ranexa. #Dyslipidemia Chronic. She does not take any home medications for this. #Hypertension Presented mildly hypertensive. Restart home BP, ACEI, isosorbide mononitrate. Continue monitor BP Physical therapy consult Lovenox for DVT prophylaxis. Pepcid for GI prophylaxis. Continue the current management. Accelerated hypertension probably secondary to acute stress. Provide hydralazine. Patient also request some pain or sedation as she is quite anxious this morning. Added Ativan p.o. as needed. adjusting BP meds as readings are high plan for dc home in 1 or 2 days.
[2020-09-15] MEDS ORDERED: Lisinopril 10 MG TAB PO SCH (10:30)
[2020-09-15] MEDS: Polyethylene Glycol OPTH DROP 15 ML BOT EA EYE SCH ×2 (15:19→20:00)
[2020-09-15] MEDS: Aspirin Chewable 81 MG TAB PO SCH (19:59)
[2020-09-15] MEDS: Amitriptyline HCl 25 MG TAB PO SCH (20:00)
[2020-09-16 06:44] LABS: Anion Gap 12 mmol/L (10-20); BUN (Urea Nitrogen) 16 mg/dL (9.8-20.1); Calc. Creatinine Clearance 87 mL/min (70-130); Calcium 7.9 mg/dL (7.8-10.44); Carbon Dioxide 23 mmol/L (23-31); Chloride 101 mmol/L (98-107); Glucose 102 mg/dL (83-110); Potassium 4.1 mmol/L (3.5-5.1); Sodium 132 mmol/L (136-145)
[2020-09-16] MEDS: Polyethylene Glycol 3350 17 GM Packet PO SCH (07:47)
[2020-09-16] MEDS: Polyethylene Glycol OPTH DROP 15 ML BOT EA EYE SCH (07:47)
[2020-09-16] MEDS: Ubidecarenone 50 MG CAP PO SCH (07:47)
[2020-09-16] MEDS: Zinc Sulfate 220 MG CAP PO SCH (07:48)
[2020-09-16] MEDS: Multivitamin W/ Minerals 1 TAB PO SCH (07:48)
[2020-09-16] MEDS: Clopidogrel Bisulfate 75 MG TAB PO SCH (07:48)
[2020-09-16] MEDS: Cholecalciferol 1,000 UNITS (25 MCG) TAB PO SCH (07:48)
[2020-09-16] MEDS: Dexamethasone 4 MG TAB PO SCH (07:48)
[2020-09-16] MEDS: Loratadine 10 MG TAB PO SCH (07:49)
[2020-09-16] MEDS: Lisinopril 10 MG TAB PO SCH (07:49)
[2020-09-16] MEDS: Enoxaparin Sodium 40 MG/0.4 ML SYRINGE SC SCH (08:28)
[2020-09-16] MEDS ORDERED: hydrALAZINE 25 MG TAB PO SCH (09:15)
--- NOTE | 2020-09-16 10:54 | PDOC.DS.DS ---
Provider - Provider Date of Admission: 09/12/20 18:43 Admitting Provider: [place] MD Course - Hospital Course Hospital Course: 80/F with PMH HTN, HLD, CAD presents for general weakness and malaise. Admit to medical floor, observation status. Expected length of stay less than 2 midnights. #Hyponatremia--- improved to 132, encouraged her to take saltine crackers for the next few days. Subclinical hyperthyroidism -Patient is not on any thyroid supplement will follow up with the free T4 will not start her on any supplement but follow-up in 1 or 2 weeks with the TSH level as this may be subacute presentation of her Covid. #Generalized weakness Likely multifactorial. #COVID-19 virus infection Diagnosed 08/30. -Discharged with few days of Decadron and anticough #CAD Chronic. home dose Toprol-XL, isosorbide mononitrate and Ranexa. #Dyslipidemia Chronic. She does not take any home medications for this. #Hypertension Presented mildly hypertensive. Restart home BP, ACEI, isosorbide mononitrate. -Her systolic blood pressure is consistently in the 160 range so I increased the lisinopril to 20 mg twice a day. Still probably benefit with up titration of her Toprol-XL but I will leave that to the primary care physician. I encouraged her to check her blood pressure in the next few days discussed with the primary care physician further adjusting her Toprol. Patient is also on famotidine as well as PPI. I discontinued the famotidine. Patient needs follow-up on BMP panel to check her sodium level again in 1 week when she visits her primary care physician. Sodium is 132 on the day of discharge. Discharge time over 30 minutes. Resuscitation Status: 09/12/20 16:37 Resuscitation Status Routine Co-Sign Provider: Resuscitation Status: FULL: Full Resuscitation Discussed with: patient - Labs Lab Results: 09/14/20 06:06 09/16/20 06:01 Abnormal Lab Results - Last 48 hrs 09/12/20 13:25: Crossmatch See Detail 09/15/20 06:43: Sodium 133 L, Carbon Dioxide 21 L 09/16/20 06:01: Sodium 132 L - Physical Exam Vitals: Vital Signs (12 hours) Temp Pulse Resp BP BP BP Pulse Ox 09/16/20 09:59 125/71 09/16/20 09:11 162/83 H 09/16/20 08:39 98 09/16/20 07:49 162/83 H 09/16/20 04:00 98.0 F 58 L 20 162/83 H 98 Weight Admit Weight 207 lb 3.76 oz Weight 207 lb 9.6 oz Physical Exam: The patient was seen and examined on the day of discharge. Well. She has no cough she is comfortable going home today her systolic blood pressure still 160 given hydralazine 125 mg tablet and the if systolic improved to 120 range. I have explained that she needs to check her blood pressure at home and follow-up with the primary care physician to titrate her existing home regimen. Plan - Discharge Medications Prescriptions: Dexamethasone [Decadron] 6 mg PO QAM-WM 10 Days #10 tab Guaifenesin DM 100-10 [Robitussin DM] 15 ml PO Q4H PRN 10 Days #100 ml PRN Reason: Cough Lisinopril [Zestril] 20 mg PO BID 30 Days #60 tab Zinc Sulfate 220 mg PO DAILY 10 Days #10 cap Home Medications: Medication Instructions Recorded Confirmed Type Aspirin [Rose Chewable Aspirin] 81 mg PO HS 03/04/15 09/12/20 History Clopidogrel Bisulfate [Plavix] 75 mg PO DAILY 03/04/15 09/12/20 History Isosorbide Mononitrate [Isosorbide 60 mg PO DAILY 03/04/15 09/12/20 History Mononitrate ER] Metoprolol Succinate [Toprol XL] 50 mg PO HS 03/04/15 09/12/20 History Multivit-Min/FA/Lycopene/Lut 1 tab PO DAILY 03/04/15 09/12/20 History [Centrum Silver] Raloxifene HCl [Evista] 60 mg PO DAILY 03/04/15 09/12/20 History Ranolazine [Ranexa] 1,000 mg PO BID 03/04/15 09/12/20 History Hyoscyamine Sulfate 0.125 mg PO ACHS PRN 03/12/16 09/12/20 History Cetirizine HCl [Zyrtec] 10 mg PO DAILY 01/18/17 09/12/20 History Furosemide 20 mg PO DAILY PRN 01/18/17 09/12/20 History Omeprazole 1 tab PO BID 01/18/17 09/12/20 History Polyethylene Glycol 3350 [Miralax] 17 gm PO DAILY 01/18/17 09/12/20 History Ubidecarenone [CoQ-10] 100 mg PO DAILY 01/18/17 09/12/20 History Amitriptyline HCl [Elavil] 1 tab PO HS 03/13/18 09/12/20 History HYDROcodone/Acetaminophen [[place] 1 tab PO Q8HR PRN 03/15/18 09/12/20 History 7.5-325 Tablet] Dexamethasone [Decadron] 6 mg PO QAM-WM 10 Days #10 tab 09/16/20 Rx Guaifenesin DM 100-10 [Robitussin 15 ml PO Q4H PRN 10 Days #100 ml 09/16/20 Rx DM] Lisinopril [Zestril] 20 mg PO BID 30 Days #60 tab 09/16/20 Rx Zinc Sulfate 220 mg PO DAILY 10 Days #10 cap 09/16/20 Rx Allergies: adhesive Allergy (Severe, Verified 11/23/19 12:29) pt states breaks out in rash with the use of adhesives [id number] Reductase Inhibitor Allergy (Intermediate, Verified 11/23/19 12:29) MUSCLE PAIN - Discharge Instructions Discharge Instructions:: Follow-up with PCP in 1 week Activity:: Activity as Tolerated Nourishment:: Heart Healthy Diet - Follow up Plan Disposition: HOME Quality - Care Measures CORE MEASURES:: N/A
[2020-09-16 11:16] VITALS: BP 146/77; TEMP 97.7
--- NOTE | 2020-09-20 15:16 | EKG ---
Test Reason : Blood Pressure : / mmHG Vent. Rate : 069 BPM Atrial Rate : 069 BPM P-R Int : 136 ms QRS Dur : 082 ms QT Int : 430 ms P-R-T Axes : 042 -15 040 degrees QTc Int : 460 ms Normal sinus rhythm Minimal voltage criteria for LVH, may be normal variant Borderline ECG Confirmed by REY MCNEIL ([id number]), editorial manager DALIA GOVEA ([id number]) on 09/20/2020 3:16:02 PM Referred By: Confirmed By:REY Haider
== END 2020-09-16 14:37 | disposition home or self-care (01) | DRG 640 ==
LOC: ERS 12:31 → T4-B 15:15 → OBSVTOIN 18:43
PROVIDERS: ADMIT Internal Medicine; ATTEND Internal Medicine
PROC: 8E0ZXY6 Isolation (ICD-10-PCS; principal; 2020-09-12)
DX: E87.1 Hypo-osmolality and hyponatremia (principal); U07.1 COVID-19; I10 Essential (primary) hypertension; E78.5 Hyperlipidemia, unspecified; I25.10 Atherosclerotic heart disease of native coronary artery without angina pectoris; Z96.642 Presence of left artificial hip joint; E78.00 Pure hypercholesterolemia, unspecified; E05.90 Thyrotoxicosis, unspecified without thyrotoxic crisis or storm; Z95.5 Presence of coronary angioplasty implant and graft; Z79.899 Other long term (current) drug therapy; Z79.02 Long term (current) use of antithrombotics/antiplatelets; Z90.710 Acquired absence of both cervix and uterus; Z88.8 Allergy status to other drugs, medicaments and biological substances; Z91.09 Other allergy status, other than to drugs and biological substances; Z98.42 Cataract extraction status, left eye; Z98.41 Cataract extraction status, right eye
CPT/HCPCS: 36415; 36416; 71045; 80048; 80053; 81001; 82728; 83735; 83930; 83935; 84300; 84439; 84443; 84484; 85025; 85379; 86140; 86850; 86900; 86901; 87635; 93005; 96372; 96374; G0378; J1100; J1650; J8540; U0003

== ENCOUNTER 2021-04-07 09:55 | Outpatient (CLI) | payer MEDICARE | END 2021-04-07 09:56 | disposition home or self-care (01) | LOC: BICCT 09:55 | PROVIDERS: ATTEND Internal Medicine Critical Care Medicine | DX: J84.10 Pulmonary fibrosis, unspecified (principal); R91.1 Solitary pulmonary nodule; J47.9 Bronchiectasis, uncomplicated; I70.90 Unspecified atherosclerosis | CPT/HCPCS: 71250 ==

== ENCOUNTER 2021-11-02 13:58 | Outpatient (CLI) | payer MEDICARE ==
[2021-11-02 16:00] LABS: #Eosinphils 0.1 10x3/uL (0.0-0.5); #Monocytes 0.5 10x3/uL (0.0-1.1); #Neutrophils 1.7 10x3/uL (1.5-8.4); %Basophils 0.9 % (0.0-2.0); %Eosinophils 2.1 % (0.0-6.0); %Lymphocytes 47.2 % (18.0-47.0); %Monocytes 12.1 % (0.0-10.0); %Neutrophils 37.7 % (40.0-75.0); Hemoglobin 12.2 g/dL (12.0-15.5); Mean Corpuscular HGB CONC 32.2 g/dL (32.0-36.0); Mean Corpuscular Hemoglobin 31.7 pg (27.0-33.0); Mean Corpuscular Volume 98.4 fl (81.6-98.3); Mean Platelet Volume 9.3 fl (7.4-10.4); Platelet Count 255 10x3/uL (150-450); RBC Distribution Width 13.6 % (11.5-14.5); Red Blood Cell (RBC) Count 3.85 10x6/uL (3.90-5.03); White Blood Cell (WBC) Count 4.4 10x3/uL (3.5-10.5)
[2021-11-02 16:36] LABS: ALT (SGPT) 19 U/L (8-55); AST (SGOT) 19 U/L (5-34); Albumin 3.9 g/dL (3.4-4.8); Alkaline Phosphatase 63 U/L (40-110); Anion Gap 16 mmol/L (10-20); BUN (Urea Nitrogen) 15 mg/dL (9.8-20.1); Bilirubin, Total 0.5 mg/dL (0.2-1.2); Calc. Creatinine Clearance 0 mL/min (70-130); Calcium 8.9 mg/dL (7.8-10.44); Carbon Dioxide 22 mmol/L (23-31); Chloride 102 mmol/L (98-107); Globulin 2.2 g/dL (2.4-3.5); Glucose 86 mg/dL (83-110); Potassium 4.7 mmol/L (3.5-5.1); Protein, Total 6.1 g/dL (5.8-8.1); Sodium 135 mmol/L (136-145)
[2021-11-03 14:32] LABS: SARS-CoV-2 PCR by NAA Not Detected (NotDetected)
== END 2021-11-02 13:59 | disposition home or self-care (01) ==
LOC: LABBT 13:58
PROVIDERS: ATTEND Internal Medicine Cardiovascular Disease
DX: Z01.812 Encounter for preprocedural laboratory examination (principal); R06.09 Other forms of dyspnea; Z20.822 Contact with and (suspected) exposure to COVID-19
CPT/HCPCS: 80053; 85025; U0003; U0005

== ENCOUNTER 2021-11-05 05:39 | Day surgery (SDC) | payer MEDICARE ==
[2021-11-02 10:29] VITALS: BMI 34.3
[2021-11-05] MEDS ORDERED: Lidocaine 1% (PF) 30 ML VIAL ONE (06:43)
[2021-11-05] MEDS ORDERED: Fentanyl 250 MCG/5 ML VIAL ONE (06:43)
[2021-11-05] MEDS ORDERED: Nitroglycerin 100MG/250ML BOT 250 ML ONE (06:43)
[2021-11-05] MEDS ORDERED: Verapamil 5 MG/2 ML VIAL ONE (06:43)
[2021-11-05] MEDS ORDERED: Heparin 10,000 UNITS/ 10 ML VIAL ONE (06:43)
[2021-11-05] MEDS ORDERED: Midazolam HCl 2 mg/2 ml Vial ONE (06:43)
[2021-11-05] MEDS ORDERED: Clopidogrel Bisulfate 300 MG TAB ONE (08:03)
[2021-11-05] MEDS ORDERED: Iopamidol 370 76% 100 ML VIAL ONE (08:49)
== END 2021-11-05 11:00 | disposition home or self-care (01) ==
LOC: CCL 05:39
PROVIDERS: ATTEND Internal Medicine Cardiovascular Disease
PROC: 4A023N7 Measurement of Cardiac Sampling and Pressure, Left Heart, Percutaneous Approach (ICD-10-PCS; principal; 2021-11-05)
PROC: B2111ZZ Fluoroscopy of Multiple Coronary Arteries using Low Osmolar Contrast (ICD-10-PCS; 2021-11-05)
DX: R06.09 Other forms of dyspnea (principal); I25.10 Atherosclerotic heart disease of native coronary artery without angina pectoris; I25.82 Chronic total occlusion of coronary artery; I10 Essential (primary) hypertension; E78.5 Hyperlipidemia, unspecified; M81.0 Age-related osteoporosis without current pathological fracture; I87.2 Venous insufficiency (chronic) (peripheral); Z86.16 Personal history of COVID-19; Z79.02 Long term (current) use of antithrombotics/antiplatelets; Z79.810 Long term (current) use of selective estrogen receptor modulators (SERMs); Z79.82 Long term (current) use of aspirin; Z79.899 Other long term (current) drug therapy; Z88.8 Allergy status to other drugs, medicaments and biological substances; Z91.048 Other nonmedicinal substance allergy status; Z95.5 Presence of coronary angioplasty implant and graft
CPT/HCPCS: 85347; 93454; 99152; 99153; C1769; J1644; J2001; J2250; J3010; Q9967

== ENCOUNTER 2022-01-23 14:05 | Emergency (ER) | payer MEDICARE, SELFPAY ==
[~2022-01-23 14:05] MED LIST: Iopamidol-370 76% 500 ML 1 ML ONE
[2022-01-23] MEDS ORDERED: Aspirin 325 MG TAB ONE (14:31)
[2022-01-23] MEDS ORDERED: Acetaminophen 500 MG TAB ONE (14:31)
[2022-01-23] MEDS ORDERED: Nitroglycerin 0.4 MG TAB 1 EACH ONE (14:31)
[2022-01-23] MEDS ORDERED: Ondansetron ODT 4 MG TAB ONE (14:38)
[2022-01-23 14:52] LABS: #Eosinphils 0.1 thou/uL (0.0-0.7); #Lymphocytes 1.2 thou/uL (1.20-3.40); #Monocytes 0.9 thou/uL (0.11-0.59); #Neutrophils 5.3 thou/uL (1.40-6.50); %Basophils 0.1 % (0.0-1.0); %Eosinophils 1.3 % (0.0-10.0); %Lymphocytes 15.8 % (21.0-51.0); %Monocytes 12.5 % (0.0-10.0); %Neutrophils 70.3 % (42.0-75.0); Hemoglobin 12.2 g/dL (12.0-16.0); Mean Corpuscular HGB CONC 32.8 g/dL (32.0-36.0); Mean Corpuscular Hemoglobin 31.9 pg (27.0-31.0); Mean Corpuscular Volume 97.1 fL (78.0-98.0); Mean Platelet Volume 6.4 fL (7.4-10.4); Platelet Count 261 thou/uL (130-400); RBC Distribution Width 13.4 % (11.5-14.5); Red Blood Cell (RBC) Count 3.81 mill/uL (4.20-5.40); White Blood Cell (WBC) Count 7.5 thou/uL (4.8-10.8)
[2022-01-23 15:12] LABS: ALT (SGPT) 14 U/L (8-55); AST (SGOT) 19 U/L (5-34); Albumin 3.9 g/dL (3.4-4.8); Alkaline Phosphatase 88 U/L (40-110); Anion Gap 13 mmol/L (10-20); BUN (Urea Nitrogen) 11 mg/dL (9.8-20.1); Bilirubin, Total 0.6 mg/dL (0.2-1.2); Calc. Creatinine Clearance 0 mL/min (70-130); Calcium 8.9 mg/dL (7.8-10.44); Carbon Dioxide 23 mmol/L (23-31); Chloride 101 mmol/L (98-107); Globulin 2.8 g/dL (2.4-3.5); Glucose 129 mg/dL (83-110); Protein, Total 6.7 g/dL (5.8-8.1); Sodium 133 mmol/L (136-145)
[2022-01-23] MEDS ORDERED: Morphine 4 MG/ML VIAL ONE (16:15)
[2022-01-23] MEDS ORDERED: Famotidine/PF 20 mg/2ml Vial ONE (17:27)
[2022-01-23 18:41] LABS: Troponin I 0.017 ng/mL (< 0.028)
== END 2022-01-23 18:45 | disposition home or self-care (01) ==
LOC: ERS 14:05
DX: M54.6 Pain in thoracic spine (principal); M54.2 Cervicalgia; J90 Pleural effusion, not elsewhere classified; I10 Essential (primary) hypertension; E78.00 Pure hypercholesterolemia, unspecified; Z79.82 Long term (current) use of aspirin; Z79.02 Long term (current) use of antithrombotics/antiplatelets; Z79.899 Other long term (current) drug therapy
CPT/HCPCS: 36415; 71045; 71275; 80053; 83880; 84484; 85025; 96374; 96375; J2270; Q0162; S0028

== ENCOUNTER 2022-03-19 09:23 | Outpatient (CLI) | payer MEDICARE ==
[2022-03-19] MEDS ORDERED: Iopamidol-370 76% 500 ML 1 ML ONE (13:49)
== END 2022-03-19 09:24 | disposition home or self-care (01) ==
LOC: BICCT 09:23
PROVIDERS: ATTEND Thoracic Surgery (Cardiothoracic Vascular Surgery)
DX: I65.21 Occlusion and stenosis of right carotid artery (principal); I25.118 Atherosclerotic heart disease of native coronary artery with other forms of angina pectoris
CPT/HCPCS: 70498; 82565; Q9967

== ENCOUNTER 2022-03-30 10:15 | Inpatient (IN) | payer MEDICARE ==
[2022-04-01] MEDS ORDERED: EPINEPHrine 1 MG/ML AMP ONE (09:01)
[2022-04-01] MEDS ORDERED: Heparin 5,000 UNITS/ML VIAL ONE ×2 (09:01→09:21)
[2022-04-01] MEDS ORDERED: Dexamethasone 4 mg/ml Vial ONE (09:01)
[2022-04-01] MEDS ORDERED: Bupivacaine PF 0.5% 30 ML VIAL ONE (09:01)
[2022-04-01] MEDS ORDERED: Protamine Sulfate 50 MG/5 ML VIAL ONE (09:01)
[2022-04-01] MEDS ORDERED: fentaNYL Citrate/PF 100 MCG/2 ML SYRINGE ONE ×2 (09:12→11:29)
[2022-04-01] MEDS ORDERED: SUGAMMADEX SODIUM 200 MG/2 ML VIAL ONE (09:12)
[2022-04-01] MEDS ORDERED: Midazolam HCl 2 mg/2 ml Vial ONE (09:24)
[2022-04-01] MEDS ORDERED: Sodium Chloride 0.9% 100 ML ONE (09:26)
[2022-04-01] MEDS ORDERED: CEFAZOLIN 2 GM VIAL ONE (09:26)
[2022-04-01] MEDS ORDERED: Rocuronium Bromide 10 MG/ML (10ML VIAL) ONE (09:32)
[2022-04-01] MEDS ORDERED: PROPOFOL 200 MG/20 ML VIAL ONE (09:32)
[2022-04-01] MEDS ORDERED: Dexamethasone 20 MG/5 ML VIAL ONE (09:32)
[2022-04-01] MEDS ORDERED: Lidocaine 1% PF 5 ML VIAL ONE (09:32)
[2022-04-01] MEDS ORDERED: Glycopyrrolate 0.2 MG/ML 5 ML SYRINGE ONE (09:32)
[2022-04-01] MEDS ORDERED: Ondansetron PF 4 MG/2 ML Vial ONE (09:32)
[2022-04-01] MEDS ORDERED: Promethazine HCl 25 MG/ML VIAL IM PRN (10:35)
[2022-04-01] MEDS ORDERED: Ondansetron HCl/PF 4 MG/2 ML Vial IVP PRN (10:35)
[2022-04-01] MEDS ORDERED: Promethazine HCl 25 MG/ML VIAL IVPB PRN (10:35)
[2022-04-01] MEDS ORDERED: Phenylephrine 40 MG in Sodium Chloride 0.9% 250 ML 246 ML IVPB PRN (10:57)
[2022-04-01] MEDS ORDERED: traMADol HCl 50 MG TAB PO PRN (10:57)
[2022-04-01] MEDS ORDERED: Fentanyl 100 MCG/2 ML VIAL SLOW IVP PRN (10:57)
[2022-04-01] MEDS ORDERED: Acetaminophen 325 MG TAB PO PRN (10:57)
[2022-04-01] MEDS ORDERED: Ondansetron PF 4 MG/2 ML Vial IVP PRN (10:57)
[2022-04-01] MEDS ORDERED: Nitroglycerin 50 MG/250 ML BOT 250 ML IVPB PRN (10:57)
[2022-04-01] MEDS ORDERED: hydrALAZINE 20 MG/ML VIAL SLOW IVP PRN (10:57)
[2022-04-01] MEDS: Sodium Chloride 0.9% 1,000 ML IV SCH ×2 (11:15→21:10)
[2022-04-01] MEDS ORDERED: Alirocumab [Praluent Pen] 150 MG/ML Pen.Injctr SC SCH (13:00)
[2022-04-01 15:20] VITALS: BMI 34.4
[2022-04-01] MEDS: CEFAZOLIN 2 GM in Sodium Chloride 0.9% 100 ML IVPB SCH (17:47)
[2022-04-01] MEDS: traMADol HCl 50 MG TAB PO PRN (18:15)
[2022-04-01] MEDS ORDERED: Gabapentin 100 MG CAP PO SCH (21:00)
[2022-04-01] MEDS ORDERED: Montelukast Sodium 10 mg Tablet PO SCH (21:00)
[2022-04-01] MEDS ORDERED: Amitriptyline HCl 25 MG TAB PO SCH (21:00)
[2022-04-01] MEDS ORDERED: Hyoscyamine Sulfate SL 0.125 mg Tablet PO SCH (21:00)
[2022-04-01] MEDS ORDERED: Allopurinol 100 MG TAB PO SCH (21:00)
[2022-04-02] MEDS: traMADol HCl 50 MG TAB PO PRN (00:32)
[2022-04-02] MEDS: CEFAZOLIN 2 GM in Sodium Chloride 0.9% 100 ML IVPB SCH (02:07)
[2022-04-02] MEDS: Sodium Chloride 0.9% 1,000 ML IV SCH (06:26)
[2022-04-02 08:54] VITALS: TEMP 98.5
[2022-04-02] MEDS ORDERED: Loratadine 10 MG TAB PO SCH (09:00)
[2022-04-02] MEDS ORDERED: Polyethylene Glycol 3350 17 GM Packet PO SCH (09:00)
[2022-04-02] MEDS ORDERED: Amlodipine 5 MG TAB PO SCH (09:00)
[2022-04-02] MEDS ORDERED: Clopidogrel Bisulfate 75 MG TAB PO SCH (09:00)
[2022-04-02] MEDS ORDERED: Multivitamin W/ Minerals 1 TAB PO SCH (09:00)
[2022-04-02] MEDS ORDERED: Estrogens, Conjugated 30 GM TUBE VAG SCH (09:00)
[2022-04-02] MEDS ORDERED: Aspirin Chewable 81 MG TAB PO SCH (21:00)
== END 2022-04-02 08:45 | disposition home or self-care (01) | DRG 36 ==
LOC: SURG A 04-01 06:55 → CCU 04-01 13:05
PROVIDERS: ADMIT Thoracic Surgery (Cardiothoracic Vascular Surgery); ATTEND Thoracic Surgery (Cardiothoracic Vascular Surgery)
PROC: 037K34Z Dilation of Right Internal Carotid Artery with Drug-eluting Intraluminal Device, Percutaneous Approach (ICD-10-PCS; principal; 2022-04-01)
DX: I65.21 Occlusion and stenosis of right carotid artery (principal); Z20.822 Contact with and (suspected) exposure to COVID-19; E78.00 Pure hypercholesterolemia, unspecified; I10 Essential (primary) hypertension; M81.0 Age-related osteoporosis without current pathological fracture; I25.10 Atherosclerotic heart disease of native coronary artery without angina pectoris; Z96.651 Presence of right artificial knee joint; E78.2 Mixed hyperlipidemia; Z91.048 Other nonmedicinal substance allergy status; Z88.8 Allergy status to other drugs, medicaments and biological substances; Z79.82 Long term (current) use of aspirin; Z79.02 Long term (current) use of antithrombotics/antiplatelets; Z90.49 Acquired absence of other specified parts of digestive tract; Z95.1 Presence of aortocoronary bypass graft; Z82.49 Family history of ischemic heart disease and other diseases of the circulatory system; Z80.9 Family history of malignant neoplasm, unspecified
CPT/HCPCS: 76000; 80048; 85027; 87811; 94640; C1776; C1876; C1884; J0171; J0690; J1100; J1642; J1644; J2250; J2405; J2704; J2710; J2720; J3490; J7050; J7620; S0020

== ENCOUNTER 2022-03-30 10:25 | Outpatient (CLI) | payer MEDICARE ==
[2022-03-30 11:16] LABS: Hemoglobin 11.3 g/dL (12.0-15.5); Mean Corpuscular HGB CONC 31.5 g/dL (32.0-36.0); Mean Corpuscular Volume 95.2 fl (81.6-98.3); Mean Platelet Volume 9.4 fl (7.4-10.4); Platelet Count 253 10x3/uL (150-450); RBC Distribution Width 15.2 % (11.5-14.5); Red Blood Cell (RBC) Count 3.77 10x6/uL (3.90-5.03)
[2022-03-30 11:46] LABS: Anion Gap 15 mmol/L (10-20); BUN (Urea Nitrogen) 17 mg/dL (9.8-20.1); Calc. Creatinine Clearance 0 mL/min (70-130); Carbon Dioxide 22 mmol/L (23-31); Chloride 107 mmol/L (98-107); Estimated GFR 54; Glucose 109 mg/dL (83-110); Potassium 4.3 mmol/L (3.5-5.1); Sodium 140 mmol/L (136-145)
== END 2022-03-30 10:26 | disposition home or self-care (01) ==
LOC: LABBT 10:25
PROVIDERS: ATTEND Thoracic Surgery (Cardiothoracic Vascular Surgery)
DX: Z01.812 Encounter for preprocedural laboratory examination (principal); I65.21 Occlusion and stenosis of right carotid artery; Z20.822 Contact with and (suspected) exposure to COVID-19
CPT/HCPCS: 80048; 85027; 87811

== ENCOUNTER 2022-05-12 10:57 | Outpatient (CLI) | payer MEDICARE | END 2022-05-12 10:58 | disposition home or self-care (01) | LOC: RAD 10:57 | PROVIDERS: ATTEND Internal Medicine Critical Care Medicine | DX: R06.09 Other forms of dyspnea (principal) | CPT/HCPCS: 71046 ==

== ENCOUNTER 2022-12-23 12:47 | Outpatient (CLI) | payer MEDICARE | END 2022-12-23 12:48 | disposition home or self-care (01) | LOC: BICMAMMO 12:47 | PROVIDERS: ATTEND Family Medicine | DX: Z12.31 Encounter for screening mammogram for malignant neoplasm of breast (principal) | CPT/HCPCS: 77063; 77067 ==

== ENCOUNTER 2024-01-11 12:49 | Outpatient (CLI) | payer MEDICARE | END 2024-01-11 12:50 | disposition home or self-care (01) | LOC: BICMAMMO 12:49 | PROVIDERS: ATTEND Family Medicine | DX: Z12.31 Encounter for screening mammogram for malignant neoplasm of breast (principal); Z91.89 Other specified personal risk factors, not elsewhere classified | CPT/HCPCS: 77063; 77067 ==

== ENCOUNTER 2024-06-12 09:02 | Emergency (ER) | payer MEDICARE ==
[2024-06-12] MEDS ORDERED: Iopamidol-370 76% 500 ML MDV (1 ML CHARGE) ONE (10:45)
[2024-06-12 11:09] LABS: #Basophils 0.05 10x3/uL (0.0-0.2); %Basophils 0.7 % (0.0-1.0); %Eosinophils 1.5 % (0.0-10.0); %Lymphocytes 19.3 % (21.0-51.0); %Monocytes 7.8 % (0.0-10.0); %Neutrophils 70.3 % (42.0-75.0); Hematocrit 41.4 % (36.0-47.0); Hemoglobin 13.4 g/dL (12.0-16.0); Mean Corpuscular HGB CONC 32.4 g/dL (32.0-36.0); Mean Corpuscular Hemoglobin 31.1 pg (27.0-31.0); Mean Corpuscular Volume 96.1 fL (78.0-98.0); Platelet Count 292 10x3/uL (130-400); Red Blood Cell (RBC) Count 4.31 mill/uL (4.20-5.40)
[2024-06-12] MEDS ORDERED: Morphine 4 MG/ML VIAL ONE (11:32)
[2024-06-12 11:38] LABS: ALT (SGPT) 24 U/L (8-55); AST (SGOT) 29 U/L (5-34); Alkaline Phosphatase 86 U/L (40-110); Anion Gap 17 mmol/L (10-20); BUN (Urea Nitrogen) 14 mg/dL (9.8-20.1); Bilirubin, Total 0.8 mg/dL (0.2-1.2); Calc. Creatinine Clearance 0 mL/min (70-130); Calcium 9.8 mg/dL (7.8-10.44); Carbon Dioxide 22 mmol/L (23-31); Chloride 103 mmol/L (98-107); Estimated GFR 60; Globulin 3.3 g/dL (2.4-3.5); Glucose 110 mg/dL (83-110); Potassium 3.7 mmol/L (3.5-5.1); Protein, Total 7.3 g/dL (5.8-8.1); Sodium 138 mmol/L (136-145)
[2024-06-12 14:27] LABS: Bacteria/HPF None Seen HPF (None Seen); Bilirubin Negative (Negative); Blood, Urine Negative (Negative); CAUTI Indications for Culture Dysuria,urgency,freq; Clarity Clear (Clear); Glucose, Urine (Dipstick) Normal (Negative); Ketone, Urine Trace mg/dL (Negative); Leukocyte Negative Leu/uL (Negative); Nitrite Negative (Negative); Protein, Urine (Dipstick) Negative (Neg-Trace); RBC/HPF None Seen HPF (0-3); Specific Gravity, Urine 1.018 (1.002-1.036); Squamous Epithelial 0-3 HPF (0-3); Urobilinogen Normal mg/dL (Less than 2); WBC/HPF 0-3 HPF (0-3); pH, Urine 7.5 (5.0-9.0)
[2024-06-12 14:34] LABS: Urine Culture Reflex No No
[2024-06-12] MEDS ORDERED: Morphine 2 MG/ML VIAL ONE (15:02)
[2024-06-12] MEDS ORDERED: Ketorolac Tromethamine 30 MG (1 mL) VIAL ONE (15:02)
== END 2024-06-12 16:35 | disposition home or self-care (01) ==
LOC: ERS 09:02
DX: S32.020A Wedge compression fracture of second lumbar vertebra, initial encounter for closed fracture (principal); K59.00 Constipation, unspecified; I10 Essential (primary) hypertension; Z79.899 Other long term (current) drug therapy; Z79.82 Long term (current) use of aspirin; W01.198A Fall on same level from slipping, tripping and stumbling with subsequent striking against other object, initial encounter
CPT/HCPCS: 70450; 72100; 74177; 80053; 81001; 85025; J1885; J2272 ×2; 36415; 96374; 96375; 96376; Q9967

== ENCOUNTER 2024-09-20 10:07 | Outpatient (CLI) | payer MEDICARE | END 2024-09-20 10:08 | disposition home or self-care (01) | LOC: RAD 10:07 | PROVIDERS: ATTEND Internal Medicine Critical Care Medicine | DX: R06.00 Dyspnea, unspecified (principal) | CPT/HCPCS: 71046 ==

== ENCOUNTER 2025-04-10 05:42 | Day surgery (SDC) | payer MEDICARE ==
[2025-04-08 12:53] VITALS: BMI 33.4
[2025-04-10] MEDS ORDERED: PHENYLEPHRINE-NS 100 MCG/ML 10 ML SYRINGE ONE (06:27)
[2025-04-10] MEDS ORDERED: Nitroglycerin 50 MG/250 ML BOT 250 ML ONE (06:27)
[2025-04-10] MEDS ORDERED: Lidocaine 1% (PF) 30 ML VIAL ONE (06:27)
[2025-04-10] MEDS ORDERED: EPINEPHrine 1 MG/10 ML Abboject SYRINGE ONE (06:27)
[2025-04-10] MEDS ORDERED: Heparin 10,000 UNITS/ 10 ML VIAL ONE (06:27)
[2025-04-10] MEDS ORDERED: Adenosine 6 mg (2 mL) VIAL ONE (07:05)
[2025-04-10] MEDS ORDERED: Iopamidol 370 76% 100 ML VIAL ONE (09:36)
== END 2025-04-10 14:10 | disposition home or self-care (01) ==
LOC: SDC 05:42
PROVIDERS: ATTEND Internal Medicine Cardiovascular Disease
PROC: 4A023N8 Measurement of Cardiac Sampling and Pressure, Bilateral, Percutaneous Approach (ICD-10-PCS; principal; 2025-04-10)
DX: I35.0 Nonrheumatic aortic (valve) stenosis (principal); I25.10 Atherosclerotic heart disease of native coronary artery without angina pectoris; I10 Essential (primary) hypertension; E78.5 Hyperlipidemia, unspecified; Z86.16 Personal history of COVID-19; Z96.651 Presence of right artificial knee joint; Z96.642 Presence of left artificial hip joint; Z95.1 Presence of aortocoronary bypass graft; Z98.49 Cataract extraction status, unspecified eye; Z90.710 Acquired absence of both cervix and uterus; Z90.49 Acquired absence of other specified parts of digestive tract; Z88.8 Allergy status to other drugs, medicaments and biological substances; Z88.1 Allergy status to other antibiotic agents; Z91.048 Other nonmedicinal substance allergy status; Z79.82 Long term (current) use of aspirin; Z79.02 Long term (current) use of antithrombotics/antiplatelets; Z79.899 Other long term (current) drug therapy
CPT/HCPCS: 85347; 93460; C1751; C1769 ×6; C1894 ×2; J1644; J2250; J2720; J3010; 93461; 93799; 99152; 99153; J0153; J0165; J0461; Q9967